=== PATIENT | female | born 1960 ===

== ENCOUNTER 2018-12-16 20:30 | Emergency (ER) | payer MEDICAID ==
[~2018-12-16] VITALS: Ht 162.6 cm; Wt 63.6 kg
[2018-12-16 20:31] VITALS: BP 128/106
--- NOTE | 2018-12-16 21:20 | NUR ---
NO RESPONSE FROM LOBBY AFTER 3 ATTEMPTS TO ROOM. NO NUMBER ON FILE TO MAKE F/U CALL, DR. THOMAS INFORMED
== END 2018-12-16 21:50 | disposition left against medical advice (07) ==
LOC: ER 20:30
DX: R10.9 Unspecified abdominal pain (principal); Z53.21 Procedure and treatment not carried out due to patient leaving prior to being seen by health care provider